=== PATIENT | female | born 1970 | race Hispanic/Latino ===

== ENCOUNTER 2024-08-26 12:16 | Emergency (ER) | payer SELFPAY ==
[2024-08-26] VITALS (7 sets, daily range): BP systolic 133–186; BP diastolic 57–87; BMI 29.5
[2024-08-26 12:39] LABS: % Basophils 0.6 % (0-2); % Eosinophils 0.9 % (0-6); % Immature Granulocytes 0.3 % (0-0.5); % Lymphocytes 22.8 % (20.5-51.1); % Monocytes 5.6 % (1.7-9.3); % Neutrophils 69.8 % (42.2-75.2); Absolute Basophils 0.1 10^3/uL (0-0.2); Absolute Eosinophils 0.1 10^3/uL (0-0.7); Absolute Lymphocytes 2.7 10^3/uL (1.2-3.4); Absolute Monocytes 0.7 10^3/uL (0.1-0.6); Absolute Neutrophils 8.4 10^3/uL (1.4-6.5); Hematocrit 42.7 % (37.0-47.0); Hemoglobin 14.9 g/dL (12.0-16.0); Mean Corp Hgb Conc. 34.9 g/dL (33.0-37.0); Mean Corpuscular Hgb 27.2 pg (27.0-31.0); Mean Corpuscular Volume 78.1 fL (81.0-99.0); Mean Platelet Volume 9.9 fL (7.4-10.4); Nucleated Red Blood Cells % 0 %; Platelet Count 190 10^3/uL (130-400); Red Blood Cell Count 5.47 10^6/uL (4.20-5.40); Red Cell Dist. Width 13.2 % (11.5-14.5)
[2024-08-26 13:05] LABS: ALT (SGPT) 122 U/L (0-35); AST (SGOT) 62 U/L (14-36); Albumin 4.3 g/dl (3.5-5.0); Alkaline Phosphatase 205 U/L (38-126); Blood Urea Nitrogen 18 mg/dl (7-17); Calcium 9.4 mg/dl (8.4-10.2); Carbon Dioxide 24 mmol/L (22-30); Chloride 103 mmol/L (98-107); Glucose 299 mg/dl (70-99); Potassium 4.4 mmol/L (3.5-5.1); Sodium 136 mmol/L (135-145); Total Bilirubin 0.6 mg/dl (0.2-1.3); Total Protein 7.6 g/dl (6.3-8.2); eGFR > 60.00
--- NOTE | 2024-08-26 13:48 | ED.GENMED ---
History of Present Illness
General
Chief Complaint: Chest Pain
Source: patient
Exam Limitations: none
Time Seen by Provider: 08/26/24 13:39
History of Present Illness
History of Present Illness:
54-year-old female presents with left upper chest pain. This started about 2 to 3 hours prior to my exam. 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 The pain is not pleuritic. She noted associated left
arm tingling. No shortness of breath. She was sweaty but not nauseous. She at one point was diagnosed with diabetes but does not have insurance and has not been able to follow-up any providers. She does not take any medications for this reason.
She does not smoke. No prior history of cardiac disease. No other complaints
Past History
Past History
ED Past Medical History: NIDDM
ED Past Surgical History: Other (hernia repair)
Social History
Tobacco: Non-smoker
Alcohol: None
Drug: None
Phy Exam
Physical Exam
Physical Exam:
General: Well-appearing female no acute respiratory distress no current chest pain
HEENT: Normocephalic atraumatic
Heart: Regular rate and rhythm lungs: Clear no wheeze
Abdomen is soft nontender
Extremities: No cyanosis
Scores
Heart Score for Chest Pain Patients
STEMI patient?: No
History: Slightly or Non-Suspicious
ECG: Normal
Age: >45 - <65 years
Risk Factors: 1 or 2 Risk Factors
Troponin: </= Normal Limit
Heart Score for Chest Pain Patients: 2
Heart Score Risk: 2.5% MACE over next 6 weeks
Course
Orders/Labs/Results
Orders:
Orders
08/26/24 12:17
Electrocardiogram (*1) Urgent
Reason for Study: Chest Pain
EKG- Treatment ONCE
08/26/24 12:28
Complete Blood Count/With Diff Urgent
Comprehensive Metabolic Panel Urgent
08/26/24 13:48
CR Chest - 2 Views Urgent
Comment:
Reason For Exam: chest pain
08/26/24 13:54
Troponin I Urgent
08/26/24 16:59
Troponin I Urgent
Abnormal Lab Results
08/26/24
12:28
WBC 12.0 H 10^3/uL
(4.8-10.8)
RBC 5.47 H 10^6/uL
(4.20-5.40)
MCV 78.1 L fL
(81.0-99.0)
Absolute Neuts (auto) 8.4 H 10^3/uL
(1.4-6.5)
Absolute Monos (auto) 0.7 H 10^3/uL
(0.1-0.6)
BUN 18 H mg/dl
(7-17)
Creatinine 0.5 L mg/dL
(0.6-1.0)
Glucose 299 H mg/dl
(70-99)
AST 62 H U/L
(14-36)
ALT 122 H U/L
(0-35)
Alkaline Phosphatase 205 H U/L
(38-126)
08/26/24 12:28
08/26/24 12:28
Vital Signs
Initial and Last Documented VS:
Initial Vital Signs
Temp Pulse Resp BP Pulse Ox
97.4 F 65 16 186/87 100
08/26/24 12:20 08/26/24 12:20 08/26/24 12:20 08/26/24 12:20 08/26/24 12:20
Last Documented Vital Signs
Temp Pulse Resp BP Pulse Ox
97.4 F 57 19 169/66 97
08/26/24 12:20 08/26/24 18:15 08/26/24 18:15 08/26/24 18:00 08/26/24 18:15
MDM/Problems Addressed
Differential Diagnosis Includes:
Chest pain. Consider ACS versus musculoskeletal chest pain. Vital signs are stable pain is not pleuritic no PE risk factors, do not suspect PE. Also consider reflux as symptom.
EKG through triage was reviewed and shows sinus rhythm without ischemic changes
*Pulse Oximetry
SaO2: 96
Oxygen Mode of Delivery: Room air
Patient hypoxic: no
*Critical Care Note
Total Time (30-74mins, 75-104mins- exclusive of procedures): Not Applicable
Update Note
Update Note:
Patient reevaluated initial and repeat troponin both undetectable chest x-ray clear vital signs remained stable no further discomfort while here. No indication for ACS at this time. Serum glucose is 299 advise she follow-up with her doctor.
Patient does not have a doctor will [facility].
ED Attending Note
-
Portions of this chart may have been created with voice recognition software.� Occasional wrong word or��sound alike� substitutions may have occurred due to the inherent limitations of voice recognition software.
Discharge Plan
Departure
Patient Disposition: Home (Routine Discharge)
Date of Disposition: 08/26/24
Time of Disposition: 18:27
Patient with high blood pressure during this ER visit?: No
Discharge Problem:
Chest pain
Instructions: Chest Pain PCP Follow Up
Prescriptions:
No Action
No Current Medications
0
Referrals:
[facility]Outside]
UNKNOWN - PT DOES,NOT KNOW [Family Provider]
Activity Restrictions/Additional Instructions:
Please return here for worsening symptoms otherwise follow-up with your doctor
Interventions
Interventions:
*Risk Screen - Suicide Last Done: 08/26/24 15:08
*General Assessment Last Done: 08/26/24 15:08
*Neglect/Abuse Screening Last Done: 08/26/24 15:08
*ED- Fall Risk Assessment Last Done: 08/26/24 15:08
*ED COVID-19 Vaccine History Last Done: 08/26/24 15:08
ED- Cardiac Assessment Last Done: 08/26/24 15:08
Discharge Date and Time
Print Language: [id number]
[2024-08-26 14:47] LABS: Troponin I < 0.012 ng/ml
[2024-08-26 17:41] LABS: Troponin I < 0.012 ng/ml
== END 2024-08-26 18:59 | disposition home or self-care (01) ==
LOC: EMR 12:16
PROVIDERS: Emergency Medicine; Physician Assistant; EMERGENCY PHYSICIAN Emergency Medicine
DX: R07.89 Other chest pain (principal); R20.2 Paresthesia of skin; E11.9 Type 2 diabetes mellitus without complications
CPT/HCPCS: 99283; 71046; 80053; 84484; 85025; 93005